=== PATIENT | male | born 1990 | race Two or more races ===

== ENCOUNTER 2017-03-17 05:59 | Emergency (ER) | payer SELFPAY ==
[2017-03-17] MEDS ORDERED: LORAZEPAM INJ 2 MG/1 ML VIAL IV ONE (06:07)
[2017-03-17] MEDS ORDERED: LORAZEPAM INJ 2 MG/1 ML VIAL ONE (06:08)
--- NOTE | 2017-03-17 06:08 | ER Document Report ---
ED Seizure - General Mode of Arrival: Medic Information source: Relative, Emergency Med Personnel Cannot obtain history due to: Altered mental status - HPI Patient complains to provider of: First seizure Preceding symptoms/context: Recent alcohol intake Character of seizure: Generalized shaking, Incontinent bladder <MELISSA GOLDMAN - Last Filed: 03/17/17 14:00> <JOSUÉ RIOS - Last Filed: 03/17/17 14:58> - General Chief Complaint: Probable Seizure Stated Complaint: POSSIBLE SEIZURE Time Seen by Provider: 03/17/17 06:05 Notes: Patient is a 26 year old male who presents to the ED via EMS unresponsive. From family member patient was drinking last night. He had at least 15 beers with family. He then passed out in the garage, family member went to bed. They quit drinking at 0300 this morning. Patients went and got family member after he had fallen from a standing position hitting the back of his head. When family member got to the patient, he was laying on the floor with a stiff and shaking body and his eyes rolling in the back of his head. He tried putting cold water on his face but could not get the patient to respond. He was also incontinent. EMS was then called. Patient is unresponsive and post ictal upon arrival to the ED. 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[place], [place] Lives with: Family - Medical History Medical History: Negative Psychiatric Medical History: Reports: Hx Anxiety Surgical Hx: Negative <JOSUÉ RIOS - Last Filed: 03/17/17 14:58> Review of Systems - Review of Systems -: Yes ROS unobtainable due to patient's medical condition <MELISSA GOLDMAN - Last Filed: 03/17/17 14:00> Physical Exam - General General appearance: Unresponsive - HEENT Head: Other - hematoma to left forehead just above eyebrow Eyes: Other - pupils small and minimally responsive Mucous membranes: Dry - Respiratory Respiratory status: No respiratory distress Breath sounds: Rhonchi - Cardiovascular Rhythm: Regular Heart sounds: Normal auscultation Murmur: No - Abdominal Inspection: Normal Distension: No distension Tenderness: Nontender - Back Back: Normal - Extremities General upper extremity: Normal inspection, Normal strength General lower extremity: Normal inspection, Normal strength. No: Edema - Skin Skin Temperature: Warm Skin Moisture: Dry Skin Color: Normal <MELISSA GOLDMAN - Last Filed: 03/17/17 14:00> <JOSUÉ RIOS - Last Filed: 03/17/17 14:58> - Vital signs Vitals: Resp Pulse Ox 30 H 100 03/17/17 06:03 03/17/17 06:03 - Neurological Notes: The patient is using all 4 extremities to flail about and be somewhat combative and some nonpurposeful movement. (JOSUÉ RIOS) Course - Laboratory Result Diagrams: 03/17/17 06:05 03/17/17 06:05 <MELISSA GOLDMAN - Last Filed: 03/17/17 14:00> - Laboratory Result Diagrams: 03/17/17 06:05 03/17/17 06:05 - Diagnostic Test Radiology reviewed: Image reviewed, Reports reviewed - CT scans of the head and cervical spine are read as normal with much motion artifact. - EKG Interpretation by Me EKG shows normal: Sinus rhythm, [place], Intervals, QRS Complexes, ST-T Waves Rate: Tachycardia - 101 When compared to previous EKG there are: Previous EKG unavailable <JOSUÉ RIOS - Last Filed: 03/17/17 14:58> - Re-evaluation Re-evalutation: 03/17/17 14:00 Family has now arrived. They have reported the the reason for the fall last night was an attempted hanging. Patient was fighting with his girlfriend. She had walked away and when she came back a while later, she found the patient hanging from an extension cord with his feet hanging. She was able to get a knife from the kitchen and cut him down. That is what caused the fall, when patient fell down he hit his head which is what caused the seizure. After further talking with the patient and his family, it is reported that the patient has struggled with anxiety and depression for the past several years, he has been treated in the past at [facility] in [facility]. Patient states he has never attempted suicide in the past but he has thought about cutting himself. Step father was unaware of this incident until more family arrived which is why it was not reported when he first arrived to the ER this morning. Patient does have a hoarse voice, patients family states it is more hoarse than baseline for the patient. On re-examination, patient does have some linear erythema in the folds of his neck that were not noticed initially and are consistent with reports of patient attempting to hang himself. (MELISSA GOLDMAN) 03/17/17 06:55 Patient was given 1 mg of Ativan to facilitate getting the CT scans done. When he returned from the CT scanner, he had snoring respirations with 100% O2 saturation on a mask.\ There was no Babinski, and no ankle clonus. When the feet were pricked with a needle, he did jerk away withdrawal and and turn or twist his feet on both sides. 03/17/17 13:06 The patient is now alert, thinking clearly. He states he is not hungry at this time, however he does think he can drink some fluids. He also indicates that he has some discomfort to the right side of his head. It is a little tender to palpate. There is also tenderness to palpate the minor contusion abrasion on the left forehead above the left eye. His alcohol level would now be down to about 100mg%. (JOSUÉ RIOS) - Vital Signs Vital signs: Temp Pulse Resp BP Pulse Ox 98.5 F 109 H 17 136/83 H 100 03/17/17 06:04 03/17/17 06:04 03/17/17 14:16 03/17/17 14:16 03/17/17 13:16 - Laboratory Laboratory results interpreted by me: 03/17/17 03/17/17 06:05 06:48 Sodium 150.8 H Glucose 146 H Urine Blood SMALL H Critical Care Note - Critical Care Note Total time excluding time spent on procedures (mins): 45 <JOSUÉ RIOS - Last Filed: 03/17/17 14:58> Discharge <MELISSA GOLDMAN - Last Filed: 03/17/17 14:00> <JOSUÉ RIOS - Last Filed: 03/17/17 14:58> - Discharge Clinical Impression: Head injury due to trauma Qualifiers: Encounter type: initial encounter Qualified Code(s): S09.90XA - Unspecified injury of head, initial encounter Altered mental status Qualifiers: Altered mental status type: unspecified Qualified Code(s): R41.82 - Altered mental status, unspecified Alcohol intoxication Qualifiers: Complication of substance-induced condition: uncomplicated Qualified Code(s): F10.920 - Alcohol use, unspecified with intoxication, uncomplicated Suicide attempt by hanging Qualifiers: Encounter type: initial encounter Qualified Code(s): T71.162A - Asphyxiation due to hanging, intentional self-harm, initial encounter Condition: Stable Disposition: PSYCH HOSP/UNIT Scribe Attestation: 03/17/17 07:09 I personally performed the services described in the documentation, reviewed and edited the documentation which was dictated to the scribe in my presence, and it accurately records my words and actions. (JOSUÉ RIOS) Scribe Documentation - Scribe Written by Scribe:: jadon Chopra, [id number], 03/17/17 acting as scribe for :: Gaurav <MELISSA GOLDMAN - Last Filed: 03/17/17 14:00>
[2017-03-17 06:17] LABS: ABSOLUTE EOSINOPHILS # (AUTO) 0.1 10^3/uL (0.0-0.6); ABSOLUTE LYMPHOCYTES (AUTO) 1.7 10^3/uL (0.5-4.7); ABSOLUTE MONOCYTES (AUTO) 0.5 10^3/uL (0.1-1.4); ABSOLUTE NEUT (AUTO) 7.3 10^3/uL (1.7-8.2); BASOPHILS % (AUTO) 0.4 % (0-2); EOSINOPHILS % (AUTO) 0.8 % (0-6); HEMATOCRIT 44.9 % (37.9-51.0); HEMOGLOBIN 15.9 g/dL (13.5-17.0); HGB HCT DIFFERENCE 2.8; LYMPHOCYTES % (AUTO) 18.1 % (13-45); MEAN CORPUSCULAR HEMOGLOBIN 31.8 pg (27.0-33.4); MEAN CORPUSCULAR HGB CONC 35.5 g/dL (32.0-36.0); MEAN CORPUSCULAR VOLUME 90 fl (80-97); MONOCYTES % (AUTO) 4.9 % (3-13); RED BLOOD COUNT 5.01 10^6/uL (4.35-5.55); SEGMENTED NEUTROPHILS % (AUTO) 75.8 % (42-78); WHITE BLOOD COUNT 9.7 10^3/uL (4.0-10.5)
[2017-03-17 06:32] LABS: ALANINE AMINOTRANSFERASE 72 U/L (21-72); ALCOHOL 239 mg/dL (NONE DETECTED); ALKALINE PHOSPHATASE 76 U/L (38-126); ANION GAP 17 (5-19); ASPARTATE AMINO TRANSFERASE 57 U/L (17-59); BILIRUBIN,DIRECT 0.3 mg/dL (0.0-0.4); BILIRUBIN,TOTAL 0.4 mg/dL (0.2-1.3); BLOOD UREA NITROGEN 15 mg/dL (7-20); CALCIUM 8.8 mg/dL (8.4-10.2); CARBON DIOXIDE 28 mmol/L (22-30); CHLORIDE 106 mmol/L (98-107); CREATININE RESULT 0.76 mg/dL (0.52-1.25); GLUCOSE 146 mg/dL (75-110); MAGNESIUM 2.1 mg/dL (1.6-2.3); POTASSIUM 4.5 mmol/L (3.6-5.0); SODIUM 150.8 mmol/L (137-145)
--- NOTE | 2017-03-17 06:52 | RADIOLOGY REPORT (SQ) ---
EXAM DESCRIPTION: CT HEAD WITHOUT COMPLETED DATE/TIME: 03/17/2017 6:21 am REASON FOR STUDY: fall, ETOH, hit head, alterred LOC COMPARISON: None. TECHNIQUE: Axial images acquired through the brain without intravenous contrast. Images reviewed wi th bone, brain and subdural windows. Images stored on PACS. All CT scanners at this facility use dose modulation, iterative reconstruction, and/or weight based d osing when appropriate to reduce radiation dose to as low as reasonably achievable (ALARA). [facility]: Dose Right [facility]: CareDose [facility]: Dose Right [facility]: Teradose 4D [facility]: Spaces 2 Host RADIATION DOSE: Up-to-date CT equipment and radiation dose reduction techniques were employed. CTDIv ol: 64.6 mGy. DLP: 2430 mGy-cm. mGy. LIMITATIONS: None. FINDINGS: VENTRICLES: Normal size and contour. CEREBRUM: No masses. No hemorrhage. No midline shift. No evidence for acute infarction. Normal gra y/white matter differentiation. No areas of low density in the white matter. CEREBELLUM: No masses. No hemorrhage. No alteration of density. No evidence for acute infarction. EXTRAAXIAL SPACES: No fluid collections. No masses. ORBITS AND GLOBE: No intra- or extraconal masses. Normal contour of globe without masses. CALVARIUM: No fracture. PARANASAL SINUSES: No fluid or mucosal thickening. SOFT TISSUES: No mass or hematoma. OTHER: No other significant finding. IMPRESSION: NORMAL BRAIN CT WITHOUT CONTRAST. EVIDENCE OF ACUTE STROKE: NO. COMMENT: Quality ID # [id number]: Final reports with documentation of one or more dose reduction techniques (e.g., Automated exposure control, adjustment of the mA and/or kV according to patient size, use of iterative reconstruction technique) TECHNICAL DOCUMENTATION: JOB ID: [id number] 2597 [employer]- All Rights Reserved
--- NOTE | 2017-03-17 06:54 | RADIOLOGY REPORT (SQ) ---
EXAM DESCRIPTION: CT CERVICAL SPINE WITHOUT COMPLETED DATE/TIME: 03/17/2017 6:28 am REASON FOR STUDY: fall, ETOH, hit head, alterred LOC COMPARISON: None. TECHNIQUE: Axial images acquired through the cervical spine without intravenous contrast. Images re viewed with lung, soft tissue and bone windows. Reconstructed coronal and sagittal MPR images review ed. Images stored on PACS. All CT scanners at this facility use dose modulation, iterative reconstruction, and/or weight based d osing when appropriate to reduce radiation dose to as low as reasonably achievable (ALARA). [facility]: Dose Right [facility]: CareDose [facility]: Dose Right [facility]: Teradose 4D [facility]: [employer] RADIATION DOSE: Up-to-date CT equipment and radiation dose reduction techniques were employed. CTDIv ol: 18.0 mGy. DLP: 879 mGy-cm. mGy. LIMITATIONS: Motion FINDINGS: ALIGNMENT: Anatomic. MINERALIZATION: Normal. VERTEBRAL BODIES: No fractures or dislocation. DISCS: No significant disc disease. FACETS, LATERAL MASSES, POSTERIOR ELEMENTS: No fractures. No dislocation. No acute findings. HARDWARE: None in the spine. VISUALIZED RIBS: No fractures. LUNG APICES AND SOFT TISSUES: No significant or acute findings. OTHER: No other significant finding. IMPRESSION: NO ACUTE OR SIGNIFICANT FINDINGS IN THE CERVICAL SPINE. TECHNICAL DOCUMENTATION: JOB ID: [id number] Quality ID # [id number]: Final reports with documentation of one or more dose reduction techniques (e.g., Au tomated exposure control, adjustment of the mA and/or kV according to patient size, use of iterative reconstruction technique) 2010 [employer]- All Rights Reserved
[2017-03-17] MEDS ORDERED: NORMAL SALINE 1000 ML 1,000 ML IV ONE ×3 (07:09→11:18)
[2017-03-17 07:13] LABS: APPEARANCE,URINE CLEAR; BILIRUBIN,URINE NEGATIVE (NEGATIVE); GLUCOSE, URINE NEGATIVE (NEGATIVE); KETONES,URINE NEGATIVE (NEGATIVE); LEUKOCYTE ESTERASE,URINE NEGATIVE (NEGATIVE); NITRITE,URINE NEGATIVE (NEGATIVE); PROTEIN,URINE NEGATIVE (NEGATIVE); URINE SPECIFIC GRAVITY 1.015; UROBILINOGEN,URINE NEGATIVE mg/dL (<2.0)
[2017-03-17 07:25] LABS: URINE BARBITURATES SCREEN NEGATIVE; URINE METHADONE SCREEN NEGATIVE; URINE OPIATES LOW NEGATIVE; URINE PHENCYCLIDINE SCREEN NEGATIVE
--- NOTE | 2017-03-17 08:05 | EKG REPORT ---
SEVERITY:- OTHERWISE NORMAL ECG - SINUS TACHYCARDIA : Confirmed by: Justin Jiménez MD 17-Mar-2017 08:05:11
--- NOTE | 2017-03-17 09:26 | RADIOLOGY REPORT (SQ) ---
EXAM DESCRIPTION: CHEST SINGLE VIEW COMPLETED DATE/TIME: 03/17/2017 8:51 am REASON FOR STUDY: intoxicated, head injury COMPARISON: None. EXAM PARAMETERS: NUMBER OF VIEWS: One view. TECHNIQUE: Single frontal radiographic view of the chest acquired. RADIATION DOSE: NA LIMITATIONS: None. FINDINGS: LUNGS AND PLEURA: No opacities, masses or pneumothorax. No pleural effusion. MEDIASTINUM AND HILAR STRUCTURES: No masses. Contour normal. HEART AND VASCULAR STRUCTURES: Heart normal in size. Normal vasculature. BONES: No acute findings. HARDWARE: None in the chest. OTHER: No other significant finding. IMPRESSION: NO ACUTE RADIOGRAPHIC FINDING IN THE CHEST. TECHNICAL DOCUMENTATION: JOB ID: [id number]
--- NOTE | 2017-03-17 15:35 | ER Document Report ---
ED Psych Disorder / Suicide - General Mode of Arrival: Medic Information source: Patient, Relative - HPI Patient complains to provider of: Suicidal ideation, Suicidal attempt - pt reportedly attempted to hang himself and was found hanging, cut down by SO Onset: Yesterday Onset was: Gradual Suicide Risk Factors: Depressed, Frightened friends/family, Male Situational problems related to: Other - chronic anxiety Normal mood: Yes - today, yes 03/18 Associated symptoms: Depressed Similar symptoms previously: No Recently seen / treated by doctor: No <XIOMARA BRIGHT - Last Filed: 03/18/17 08:37> <CLIVE VALENCIA - Last Filed: 03/18/17 09:24> - General Chief Complaint: Probable Seizure Stated Complaint: POSSIBLE SEIZURE Time Seen by Provider: 03/17/17 06:05 - HPI Notes: Conducted check in with patient who is a 26-year-old male under involuntary commitment at [facility] for a suicide attempt via hanging. Patient was evaluated utilizing the [employer] translation service. Patient today states he is feeling well. Patient reports he feels ashamed for his action. Patient states he no longer wants to by suicide. Discussed with patient his drinking habits which he estimates are around 3 days per week. Discussed with patient that he was started on Keppra 500 mg twice daily and can follow-up with the [facility] to continue the prescription. Provided patient psychoeducation regarding alcohol and drug use with the medication. Advised patient he needs to discontinue his alcohol usage. Patient's girlfriend is bedside and patient did provide verbal consent to speak with her and in front of her. Girlfriend is bedside and states she does not have concerns with the patient returning home in regards to his safety. Girlfriend states she will ensure the patient takes his medications only as prescribed. She reports she will assist him in following up with the [facility]. Patient is alert and oriented. Mood is euthymic with normal affect. Patient denies suicidal/homicidal ideations, intent, plan, means. Patient denies A/VH; delusions not noted. Thought processes were organized. Conversational speech was within normal limits for rate, tone, and prosody. Intellectual abilities were estimated within average range. Attention and focus were fair. Insight, judgment, impulse control were poor to fair. Unspecified Depressive Disorder Unspecified Anxiety Disorder She is psychiatrically cleared for discharge. Patient is recommended for recent IVC to discharge with his girlfriend to return home. Patient is encouraged to follow-up with mental health treatment; however, it is noted this may be difficult given [place]. Patient was provided resources [facility]. Patient encouraged to follow-up with in 5-7 days. Patient no longer meets criteria for involuntary commitment per the [place] General statute 122C as he denies SI or HI, is not experiencing command hallucinations telling him to harm himself or others, and is agreeable to follow-up in voluntarily seek assistance for his mental health needs. I consulted with Dr. Servin in regards to the care management of this patient. Patient is a 26 year old male who presented to [facility] via EMS due to seizure activity, post head trauma. Initially, it was reported that patient fell back and hit his head; however, prior to discharge, family disclosed that the patient attempted suicide last night via hanging. Patient was reportedly found hanging and was cut down by his significant other (at which time he fell and hit his head). MD did not carmona on neck congruent with hanging. Evaluation is conducted with the assistance of his [id number]-aie who translates as the patient does not speak Ukrainian. Patient states he was drinking all night with family/friends and he and his girlfriend were listening to music on her phone. He states she was tired and wanted to go to bed and also take her phone with her. Patient states after she left he felt horrible for upsetting her and wanted to . Patient states this was his first suicide attempt. Patient states he works as a cook, and at times after work gets upset and angry, but denies previous thoughts of suicide. Patient identifies his symptoms as anxiety and reports he has presented [facility] with chest pains; however, medically cleared. [place] has been unable to establish himself with a primary care provider or for mental health care. Patient denies daily or even frequent ETOH. Patient states he will take Xanax when he can. Wesatot-km-Vyz (MARK) states he has been to the patient's sister x7 years and has known the patient about 8 years. He states the patient struggles with Anxiety, and feels like he is having a heart attack. MARK reports a familial history of anxiety. He identifies that the patient has been unable to follow up with any outpatient providers. Patient is A&O. Mood is depresses and anxious with flat affect. Patient acknowledges he attempted suicide last night via hanging himself. There are observed carmona on patient's neck. Patient denies homicidal ideations, intent, plan, or means. Patient denies A/V H; delusions not noted. Thought processes were guarded. Conversational speech was low and raspy for rate, tone, and prosody. Intellectual abilities were estimated within average range. Attention and focus were poor. Insight, judgment, and impulse control were poor. Unspecified Depressive Disorder Unspecified Anxiety Disorder Patient is recommended for IVC for his safety. Patient attempted to kill himself last night by hanging and had to be cut down by his girlfriend. There are observable markings around his neck to substantiate this report. Patient is considered a danger to himself. Explained IVC process to patient and family to the best of my ability. I consulted with Dr. Servin in regards to the care and management of this patient. ED MD is in agreement with disposition and recommendations. (XIOMARA BRIGHT) - Related Data Allergies/Adverse Reactions: No Known Allergies Allergy (Unverified 03/17/17 07:00) Past Medical History - General Information source: Patient, Relative - Social History Smoking Status: Unknown if Ever Smoked Frequency of alcohol use: Social Drug Abuse: None Family History: Reviewed & Not Pertinent Surgical Hx: Negative - Immunizations Hx Diphtheria, Pertussis, Tetanus Vaccination: - unknown <XIOMARA BRIGHT - Last Filed: 03/18/17 08:37> - Vital signs Vitals: Resp Pulse Ox 30 H 100 03/17/17 06:03 03/17/17 06:03 Course - Laboratory Result Diagrams: 03/17/17 06:05 03/17/17 06:05 <XIOMARA BRIGHT - Last Filed: 03/18/17 08:37> - Laboratory Result Diagrams: 03/17/17 06:05 03/17/17 06:05 <CLIVE VALENCIA - Last Filed: 03/18/17 09:24> - Re-evaluation Re-evalutation: 03/18/17 09:20 I discussed the care of this patient with Xiomara of psychiatry this morning. I have seen the patient directly and discussed his status and care plan through a [employer] interpreter. Patient reports he is feeling much better and is not having any thoughts of self -harm. He has no thoughts of suicide. He does report that his throat bothers him a little bit and he has some discomfort when he drinks water. He appears to be alert and communicative and in no acute distress. His girlfriend is with him in the room. Patient agrees to follow-up with [facility]. I will prescribe Keppra for him, which was already initiated in the emergency department for both seizure activity and mood stabilization. Medications beyond the next week should be ordered by the follow-up physician. (CLIVE VALENCIA) - Vital Signs Vital signs: Temp Pulse Resp BP Pulse Ox 98.0 F 83 16 129/75 H 100 03/18/17 05:22 03/18/17 05:22 03/18/17 05:22 03/18/17 05:22 03/18/17 05:22 - Laboratory Laboratory results interpreted by me: 03/17/17 03/17/17 06:05 06:48 Sodium 150.8 H Glucose 146 H Urine Blood SMALL H Discharge <XIOMARA BRIGHT - Last Filed: 03/18/17 08:37> <CLIVE VALENCIA - Last Filed: 03/18/17 09:24> - Discharge Clinical Impression: Head injury due to trauma Qualifiers: Encounter type: initial encounter Qualified Code(s): S09.90XA - Unspecified injury of head, initial encounter Altered mental status Qualifiers: Altered mental status type: unspecified Qualified Code(s): R41.82 - Altered mental status, unspecified Alcohol intoxication Qualifiers: Complication of substance-induced condition: uncomplicated Qualified Code(s): F10.920 - Alcohol use, unspecified with intoxication, uncomplicated Suicide attempt by hanging Qualifiers: Encounter type: initial encounter Qualified Code(s): T71.162A - Asphyxiation due to hanging, intentional self-harm, initial encounter Condition: Good Disposition: HOME, SELF-CARE Instructions: Suicidal Ideation ([facility]), Acute Alcohol Intoxication ([facility]) Additional Instructions: Anxiety The physician feels that some of your health problems are being caused by anxiety. Anxiety affects your health in many ways. Anxiety alone can cause palpitations, sweats, chest pains, abdominal pains, shortness of breath, and headaches. It contributes to ulcer disease, high blood pressure, irritable bowel syndrome, and has been shown to cause flare-ups of many other diseases. Anxiety is not a simple disorder to treat. If the anxiety is due to recent life stresses, you may simply need time to "work through" the changes. If the anxiety is due to an underlying unhappiness with yourself or due to psychiatric disturbance, professional help will be needed. Your physician can refer you for further help if needed. Anti-anxiety medication is occasionally given if the stress is acute or if you are having trouble sleeping. Chronic or frequent use of these medications is not a good idea because the body becomes reliant on it, preventing you from dealing with life's normal stresses. Depression Your evaluation reveals that you have mental depression. While symptoms may be vague, they often include disturbance of sleep, fatigue, loss of appetite , and general loss of interest in life. While depression may be a side effect of drugs, or a reaction to a major change in your life, many cases have no known cause. If depression is acute, and related to a major loss in your life, you can expect it to clear completely with time. If you have been depressed a long time , are prone to repeated bouts of depression or low mood, or have been thinking of suicide, get help. Depression can be treated with anti-depressant medication and counselling. Long-term depression will often take a few weeks to clear, even with appropriate medication. Follow-up care is important. Contact your physician, the hospital emergency center, crisis line, or your counsellor if you are losing control or having self-destructive thoughts. Please follow-up with the critical access hospital. Please take your medications as prescribed. Please do not mix drugs and alcohol. Please return if your symptoms worsen. You were provided a list of resources to assist you in following up. Prescriptions: Levetiracetam [Keppra 500 mg Tablet] 500 mg PO Q12 #18 tablet Referrals: [facility] [Provider Group] - 03/18/17 (Please call today to schedule your appointment) Print Language: Hong Konger Elianibsheyla Attestation: 03/17/17 07:09 I personally performed the services described in the documentation, reviewed and edited the documentation which was dictated to the scribe in my presence, and it accurately records my words and actions. (XIOMARA BRIGHT)
[2017-03-17] MEDS ORDERED: LEVETIRACETAM 500 MG TABLET PO SCH (15:43)
[2017-03-18 09:53] VITALS: BP 132/80
== END 2017-03-18 09:45 | disposition home or self-care (01) ==
LOC: ER 05:59 → EDBD 05:59 → ER 03-18 09:45
DX: T71.162A Asphyxiation due to hanging, intentional self-harm, initial encounter (principal); S09.90XA Unspecified injury of head, initial encounter; R56.9 Unspecified convulsions; F32.9 Major depressive disorder, single episode, unspecified; F41.9 Anxiety disorder, unspecified; R41.82 Altered mental status, unspecified; F10.920 Alcohol use, unspecified with intoxication, uncomplicated; X58.XXXA Exposure to other specified factors, initial encounter; Z79.899 Other long term (current) drug therapy
CPT/HCPCS: 93005; 36415; 80307 ×2; 83735; 85025; 80053; 81001; 71010; 70450; 72125; 93010; J2060; J7030